=== PATIENT | male | born 1975 | race African-American/Black ===

== ENCOUNTER 2019-01-08 14:40 | Emergency (ER) | payer OTHER ==
[2019-01-08 14:58] VITALS: BP 144/82
[2019-01-08] MEDS ORDERED: KETOROLAC 60 MG/2 ML VIAL IM STA (16:09)
[2019-01-08] MEDS ORDERED: DEXAMETHASONE 10 MG/ML VIAL PO STA (16:09)
--- NOTE | 2019-01-08 16:14 | ED Physician Documentation ---
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) Recently seen: Not recently seen Review of Systems Constitutional: denies: Fever, Chills GI: denies: Abdominal Pain, Nausea, Vomiting : denies: Dysuria, Frequency, Hesitancy, Incontinent, Hematuria Skin: denies: Rash Musculoskeletal: denies: Neck pain Neurologic: denies: Focal weakness, Numbness PD PAST MEDICAL HISTORY - Past Medical History Past Medical History: Yes Cardiovascular: Hypertension, High cholesterol Respiratory: None Neuro: None Endocrine/Autoimmune: None GI: None : None HEENT: None Psych: None Musculoskeletal: Chronic back pain Derm: None - Past Surgical History Past Surgical History: Yes Ortho: Arthroscopic surgery, Other - Present Medications Home Medications: Ambulatory Orders Medication Instructions Recorded Confirmed Hydrochlorothiazide 50 mg PO DAILY 09/29/14 01/08/19 Lisinopril 40 mg PO DAILY 09/29/14 01/08/19 Amlodipine Besylate 10 mg PO DAILY 01/08/19 01/08/19 Atorvastatin Calcium 40 mg PO DAILY 01/08/19 01/08/19 Cyclobenzaprine [Flexeril] 10 mg PO TID PRN #20 tablet 01/08/19 Meloxicam [Mobic] 15 mg PO DAILY PRN #20 tablet 01/08/19 predniSONE [Deltasone] 10 mg PO [id number] #42 tab 01/08/19 - Allergies Allergies/Adverse Reactions: Allergies Allergy/AdvReac Type Severity Reaction Status Date / Time No Known Drug Allergies Allergy Verified 01/08/19 14:58 - Social History Does the pt smoke?: No Smoking Status: Never smoker Does the pt drink ETOH?: No Does the pt have substance abuse?: No - Immunizations Immunizations are current?: Yes - POLST Patient has POLST: Yes PD ED PE NORMAL - Vitals Vital signs reviewed: Yes - General General: Alert and oriented X 3, No acute distress, Well developed/nourished - HEENT HEENT: Moist mucous membranes - Neck Neck: Supple, no meningeal sign, No bony TTP - Cardiac Cardiac: RRR - Respiratory Respiratory: No respiratory distress, Clear bilaterally - Abdomen Abdomen: Soft, Non tender, Non distended - Back Back: No spinal TTP (No tenderness to palpation or percussion. Paraspinal spasm bilateral lower lumbar.) - Derm Derm: Warm and dry - Extremities Extremities: Other (Normal bilateral lower extremity patellar and ankle jerk reflexes. Normal great toe extension bilaterally. no saddle anesthesia) - Neuro Neuro: Alert and oriented X 3, No motor deficit, No sensory deficit - Psych Psych: Normal mood, Normal affect Results - Vitals Vitals: Oxygen O2 Source Room air PD MEDICAL DECISION MAKING - ED course Complexity details: considered differential (No cauda equina, no spinal epidural abscess, no fracture, no aortic dissection or evidence of aneursym rupture), d/w patient ED course: 43-year-old male with sciatica, lateral lower extremities. Will place on medication for home and follow-up with his doctor. Long history of back problems. Neurovascularly intact. No evidence of cauda equina, epidural abscess. Ambulating well. Patient counseled regarding signs and symptoms for which I believe and urgent re-evaluation would be necessary. Patient with good understanding of and agreement to plan and is comfortable going home at this time This document was made in part using voice recognition software. While efforts are made to proofread this document, sound alike and grammatical errors may occur. Departure - Departure Disposition: 01 Home, Self Care Clinical Impression: Sciatica Qualifiers: Laterality: bilateral Qualified Code(s): M54.31 - Sciatica, right side Condition: Good Instructions: ED Sciatica Follow-Up: Kristy Davalos MD [Provider Admit Priv/Credential] - Within 1 week Prescriptions: Cyclobenzaprine [Flexeril] 10 mg PO TID PRN #20 tablet PRN Reason: Spasms Meloxicam [Mobic] 15 mg PO DAILY PRN #20 tablet PRN Reason: pain predniSONE [Deltasone] 10 mg PO [id number] #42 tab Comments: Use the medications as prescribed. Return if you worsen. Follow-up with your doctor for further evaluation and care. Do not drive or operate heavy machinery while taking the Flexeril. Discharge Date/Time: 01/08/19 16:45
[2019-01-08] MEDS ORDERED: CHERRY SYRUP 10 ML UDC PO ONE (16:24)
== END 2019-01-08 16:45 | disposition home or self-care (01) ==
LOC: ED 14:40
DX: M54.31 Sciatica, right side (principal); I10 Essential (primary) hypertension; E78.00 Pure hypercholesterolemia, unspecified
CPT/HCPCS: 96372; 99283